=== PATIENT | female | born 1955 | race Caucasian/White ===

== ENCOUNTER → 2024-09-15 07:51 | Outpatient (REF) | payer MEDICARE, SELFPAY | LOC: WDC 07:51 | PROVIDERS: ATTENDING PHYSICIAN Nurse Practitioner Family | DX: Z12.31 Encounter for screening mammogram for malignant neoplasm of breast (principal) | CPT/HCPCS: 77063; 77067 ==

== ENCOUNTER → 2025-05-23 11:10 | Outpatient (REF) | payer MEDICARE, SELFPAY | LOC: RAD 11:10 | PROVIDERS: ATTENDING PHYSICIAN Nurse Practitioner Family | DX: M81.0 Age-related osteoporosis without current pathological fracture (principal) | CPT/HCPCS: 77080 ==